=== PATIENT | male | born 1965 | race Caucasian/White ===

== ENCOUNTER → 2022-12-14 | Outpatient (CLI) | payer OTHER | LOC: US 08:38 | PROVIDERS: ATTEND Urology | DX: Q27.1 Congenital renal artery stenosis (principal) | CPT/HCPCS: 76770 ==

== ENCOUNTER → 2022-12-22 | Outpatient (CLI) | payer OTHER | LOC: RAD 12:34 | PROVIDERS: ATTEND Urology | DX: N20.0 Calculus of kidney (principal) | CPT/HCPCS: 74018 ==